=== PATIENT | male | born 1995 | race Caucasian/White ===

== ENCOUNTER → 2019-12-15 | Outpatient (CLI) | payer OTHER ==
--- NOTE | 2019-12-15 08:39 | US ---
EXAMINATION TYPE: US liver DATE OF EXAM: 12/15/2019 COMPARISON: NONE CLINICAL HISTORY: K75.81 Nonalcoholic steatohepatitis, (MCNEIL). Elevated liver function tests per carmen ent; HT 6'4, WT 260lbs EXAM MEASUREMENTS: Liver Length: 18.3 cm Gallbladder Wall: 0.3 cm CBD: 0.4 cm Right Kidney: 11.7 x 8.5 x 4.3 cm Pancreas: wnl Liver: hyperechoic to right renal cortex suggests fatty liver, with area of focal fatty sparing = 2.9 x 2.3 x 1.3cm near gallbladder Gallbladder: wnl, wall at upper limits of normal Evidence for sonographic Mathur's sign: no CBD: wnl Right Kidney: No hydronephrosis or masses seen IMPRESSION: Hepatic steatosis with underlying focal fatty sparing.
== END | disposition home or self-care (01) ==
LOC: RADUSWWP 07:13
PROVIDERS: ATTEND Family Medicine
DX: K76.0 Fatty (change of) liver, not elsewhere classified (principal)
CPT/HCPCS: 76705

== ENCOUNTER → 2020-09-29 | Outpatient (CLI) | payer OTHER ==
[2020-09-30 04:33] LABS: Partial Thromboplastin Time 24.8 sec (22.0-30.0); Prothrombin Time 10.4 sec (9.0-12.0)
[2020-09-30 09:59] LABS: % Iron Saturation 28.77 (15.00-50.00); ALT 136 U/L (10-49); AST 58 U/L (14-35); Albumin/Globulin Ratio 2.04 (1.60-3.17); Alkaline Phosphatase 66 U/L (41-126); Bilirubin, Conjugated <0.20 mg/dL (0.20-0.40); GGT 94 U/L (0-73); Globulin 2.4 g/dL (1.6-3.3); Iron 84 ug/dL (65-175); Total Bilirubin 0.5 mg/dL (0.3-1.2); Total Iron Binding Capacity 292 ug/dL (228-460); Total Protein 7.3 g/dL (6.2-8.2)
[2020-09-30 11:33] LABS: Hepatitis A Antibody IgM Non-Reactive (Non-Reactive); Hepatitis B Core IgM Non-Reactive (Non-Reactive); Hepatitis B Surface AB- Quant 3.5 mIU/mL; Hepatitis B Surface Antibody Non-Reactive (Non-Reactive); Hepatitis B Surface Antigen Non-Reactive (Non-Reactive); Hepatitis C IgG Antibody Non-Reactive (Non-Reactive)
[2020-10-01 10:48] LABS: Ceruloplasmin 21.3 mg/dL (20.0-60.0)
== END | disposition home or self-care (01) ==
LOC: LABWHC1 16:17
PROVIDERS: ATTEND Family Medicine
DX: R74.8 Abnormal levels of other serum enzymes (principal); K75.81 Nonalcoholic steatohepatitis (NASH)
CPT/HCPCS: 36415; 80074; 80076; 82103; 82104; 82390; 82728; 82977; 83540; 83550; 85610; 85730; 86704; 86705; 86706; 86709

== ENCOUNTER → 2021-01-02 | Outpatient (CLI) | payer OTHER ==
[2021-01-02 11:37] LABS: Albumin 4.6 g/dL (3.80-4.90); Albumin/Globulin Ratio 2.3 (1.60-3.17); Bilirubin, Conjugated 0.2 mg/dL (0.20-0.40); Bilirubin,Unconjugated 0.4 mg/dL; Total Bilirubin 0.6 mg/dL (0.3-1.2); Total Protein 6.6 g/dL (6.2-8.2)
== END | disposition home or self-care (01) ==
LOC: LABWHC1 07:36
PROVIDERS: ATTEND Family Medicine
DX: K75.81 Nonalcoholic steatohepatitis (NASH) (principal)
CPT/HCPCS: 36415; 80076; 82977

== ENCOUNTER → 2021-04-19 | Outpatient (CLI) | payer OTHER ==
[2021-04-20 01:21] LABS: Albumin 4.7 g/dL (3.80-4.90); Albumin/Globulin Ratio 1.96 (1.60-3.17); Bilirubin, Conjugated 0.2 mg/dL (0.20-0.40); Bilirubin,Unconjugated 0.3 mg/dL; Globulin 2.4 g/dL (1.6-3.3); Total Bilirubin 0.5 mg/dL (0.3-1.2); Total Protein 7.1 g/dL (6.2-8.2)
== END | disposition home or self-care (01) ==
LOC: LABWHC1 16:06
PROVIDERS: ATTEND Family Medicine
DX: K76.0 Fatty (change of) liver, not elsewhere classified (principal)
CPT/HCPCS: 36415; 80076; 82977